=== PATIENT | female | born 1965 | race Caucasian/White ===

== ENCOUNTER 2016-11-29 08:04 | Outpatient (CLI) | payer MEDICARE, OTHER ==
[2016-05-08 16:23] VITALS: BP 148/74
[2016-11-29 09:03] LABS: eGFR (African) > 60; eGFR (Non-African) > 60
== END 2016-11-29 08:05 ==
LOC: LAB 08:04
PROVIDERS: ATTEND Family Medicine
DX: E55.9 Vitamin D deficiency, unspecified (principal); Z13.6 Encounter for screening for cardiovascular disorders; Z13.220 Encounter for screening for lipoid disorders
CPT/HCPCS: 36415; 80053; 80061; 82306

== ENCOUNTER 2017-01-04 08:09 | Outpatient (CLI) | payer MEDICARE, OTHER ==
[2016-05-08 16:23] VITALS: BP 148/74
[2017-01-04 08:57] LABS: eGFR (African) > 60; eGFR (Non-African) > 60
== END 2017-01-04 09:10 ==
LOC: LAB 08:09
PROVIDERS: ATTEND Family Medicine
DX: R82.99 Other abnormal findings in urine (principal)
CPT/HCPCS: 36415; 80053

== ENCOUNTER 2017-01-09 08:07 | Outpatient (CLI) | payer MEDICARE, OTHER ==
[2016-05-08 16:23] VITALS: BP 148/74
== END 2017-01-09 08:10 ==
LOC: LAB 08:07
PROVIDERS: ATTEND Family Medicine
DX: R82.99 Other abnormal findings in urine (principal)
CPT/HCPCS: 36415; 82330; 83970

== ENCOUNTER 2017-02-09 19:36 | Emergency (ER) | payer MEDICARE, OTHER ==
[2017-02-09] MEDS ORDERED: 0.9 % SODIUM CHLORIDE 1,000 ML IV ONE (20:10)
[2017-02-09 20:23] LABS: BASOPHILS % 0.9 (0.0-1.5); EOSINOPHILS % 1.7 % (0.0-6.8); MEAN CORPUSCULAR HEMOGLOBIN 30.6 pg (28.0-34.0); MONOCYTES % 6.3 % (0.0-11.0); NEUTROPHILS # 2.8 # k/uL (1.4-7.7)
[2017-02-09 20:31] LABS: eGFR (African) > 60; eGFR (Non-African) > 60
--- NOTE | 2017-02-09 20:50 | Diagnostic Imaging Report ---
LUZ [facility] [address] [facility] [address] [place], [place]. [address] Report Submission Date: Feb 09, 2017 8:47:54 PM CDT Patient Study Name: JOSEFINA ARORA Date: Feb 09, 2017 8:25:03 PM CDT Modality Type: CT\SR Gender: F Description: CT BRAIN W/O CONTRAST : 65 Institution: [facility] Physician: LUZ HOLDER Examination: CT head without contrast History: Seizure Comparison exam: None available Technique: Noncontrast head CT protocol. Findings: Ventricles and sulci are appropriate for patient age. Cerebrocerebellar parenchyma demonstrates normal attenuation. No evidence for parenchymal hemorrhage. No evidence for mass or mass effect. No midline shift. No extra axial fluid collections. Partial visualization of the paranasal sinuses , mastoid air cells, orbits, skull and scalp without gross irregularity. Impression: No acute parenchymal process. No hemorrhage. Electronically signed on Feb 09, 2017 8:47:54 PM CDT by: Bharat FORBES
--- NOTE | 2017-02-09 21:29 | Diagnostic Imaging Report ---
LUZ HOLDER [facility] [address] [facility] [address] [address] Report Submission Date: Feb 09, 2017 9:16:12 PM CDT Patient Study Name: JOSEFINA ARORA Date: Feb 09, 2017 8:40:52 PM CDT Modality Type: CR Gender: F Description: CHEST : 65 Institution: [facility] Physician: LUZ HOLDER Chest, AP portable History: Seizure Findings: No infiltrate, effusion or pneumothorax is present. The heart is enlarged. Pulmonary vascularity is normal. Cardiomegaly. Electronically signed on Feb 09, 2017 9:16:12 PM CDT by: Joseph FORBES
[2017-02-09] MEDS: 0.9 % SODIUM CHLORIDE 1,000 ML IV SCH (21:30)
--- NOTE | 2017-02-09 21:39 | ED Physician Documentation ---
Seizure - HISTORIAN Historian: patient, parent, other (facility staff) - HPI Stated Complaint: seizure Chief Complaint: Seizure Additional Information: > 5 min staring, not responsive but breathing with normal vs during incident, no loc, no loss of urinary or bowel continence Timing/Onset/Duration: single episode, other (> 5 min) Last known Well Date: 02/09/17 Last Known Well Time: 18:00 Last known Well Code/Unknown Code: Unknown Witnessed By: other (staff) Preceding Symptoms: none Activity Prior to Seizure: walking during seizure Character of Seizure(s): unresponsiveness, staring. denies: incontinence of urine, incontinence of stool Postictal Symptoms: none Location of Injury: none Further Comments: no - ROS NEURO/PSYCH: denies: headache, fainting, dizziness EYES/ENT: none CVS/RESP: none GI/: denies: adominal pain, nausea, vomiting MS/SKIN/LYMPH: none - PAST HX Previous seizure/seizure disorder: long-standing Etiology: idiopathic Other History: other (depression) Surgeries/Procedures: other (orthopedic) Immunizations: referred to PCP Allergies/Adverse Reactions: Allergies Allergy/AdvReac Type Severity Reaction Status Date / Time amoxicillin Allergy Verified 02/09/17 19:46 carbamazepine [From Tegretol] Allergy Verified 02/09/17 19:46 Home Medications: Ambulatory Orders Medication Instructions Recorded Acetaminophen/Diphenhydramine 1 tab PO HS 02/02/15 [Tylenol Pm Ex-Strength Caplet] Citalopram Hydrobromide [Celexa] 40 mg PO D 02/02/15 Lamotrigine [Lamotrigine] 150 mg PO BID 02/02/15 Loratadine [Claritin] 10 mg PO D 02/02/15 Multivitamin [Tab-A-Amanda] 1 tab PO D 02/02/15 Oxybutynin Chloride [Oxybutynin 5 mg PO HS 02/02/15 Chloride] Risperidone [Risperdal] 1 mg PO BID 02/02/15 Guaifenesin/Dextromethorphan 10 ml PO Q6 05/08/16 [Tussin Dm Syrup] Lacosamide [Vimpat] 200 mg PO BID 05/08/16 Lamotrigine [Lamotrigine] 25 mg PO BID 05/08/16 - SOCIAL HX Smoking History: non-smoker Alcohol Use: none Drug Use: none - FAMILY HX Family History: none - VITAL SIGNS Vital Signs: Vital Signs Temp Pulse Resp BP Pulse Ox 80 16 148/83 96 02/09/17 21:43 02/09/17 21:43 02/09/17 21:43 02/09/17 21:43 - REVIEWED ASSESSMENTS Nursing Assessment Reviewed: Yes Vitals Reviewed: Yes Progress - Results/Orders Results/Orders: ua, cbc, cmp, ct brain, cxr ordered in er - Progress Progress: pt. given 1 liter ns in er, pt. alert, no seizure activity in er, stable entire time in er Critical Care Note - Critical Care Note Total Time (mins): 0 ED Results Lab/Radiology - Lab Results Lab Results: Lab Results 02/09/17 02/09/17 02/09/17 20:15 20:15 20:05 WBC 6.70 K/ul K/ul (4.00-12.00) RBC 4.05 M/ul M/ul (3.90-5.20) Hgb 12.4 g/dL g/dL (12.0-16.0) Hct 37.7 % % (34.5-46.5) MCV 93.0 fl fl (80.0-100.0) MCH 30.6 pg pg (28.0-34.0) MCHC 32.9 g/dL g/dL (30.0-36.0) RDW 13.0 % % (11.3-14.3) Plt Count 127 K/mm3 L K/mm3 (130-400) Neut % (Auto) 42.5 % % (39.0-79.0) Lymph % (Auto) 46.3 % % (16.0-50.0) [place] % (Auto) 6.3 % % (0.0-11.0) Eos % (Auto) 1.7 % % (0.0-6.8) Baso % (Auto) 0.9 (0.0-1.5) Neut # (Auto) 2.8 # k/uL # k/uL (1.4-7.7) Lymph # (Auto) 3.1 # k/uL # k/uL (0.6-4.0) [place] # (Auto) 0.4 # k/uL # k/uL (0.0-0.9) Eos # (Auto) 0.1 # k/uL # k/uL (0.0-0.6) Baso # (Auto) 0.1 # k/uL # k/uL (0.0-0.5) Reactive Lymphs % 2.3 % % (0.0-5.0) Reactive Lymphs # 0.2 # k/uL # k/uL (0.0-0.8) Sodium 137 mmol/L mmol/L (136-145) Potassium 4.0 mmol/L mmol/L (3.5-5.0) Chloride 98 mmol/L mmol/L (98-110) Carbon Dioxide 35 mmol/L H mmol/L (20-32) BUN 10 mg/dL mg/dL (10-26) Creatinine 0.9 mg/dL mg/dL (0.4-1.5) Estimated Creat Clear 112 Est GFR ( Amer) > 60 (60 - ) Est GFR (Non-Af Amer) > 60 (60 - ) Glucose 111 mg/dL H mg/dL (70-99) Calcium 10.0 mg/dL mg/dL (8.5-10.5) Total Bilirubin 0.2 mg/dL mg/dL (0.2-1.2) AST 24 U/L U/L (0-41) ALT 16 U/L U/L (0-45) Alkaline Phosphatase 52 U/L U/L (46-116) Total Protein 8.2 g/dL g/dL (6.0-8.5) Albumin 4.8 g/dL g/dL (3.0-5.5) Urine Color Yellow (YELLOW) Urine Appearance Clear (CLEAR) Urine pH 7.5 (5.0 - 8.0) Ur Specific [place] 1.015 (1.010-1.030) Urine Protein Trace mg/dL H mg/dL (NEGATIVE) Urine Ketones Negative mg/dL mg/dL (NEGATIVE) Urine Occult Blood Trace-intact H (NEGATIVE) Urine Nitrite Negative (NEGATIVE) Urine Bilirubin Negative (NEGATIVE) Urine Urobilinogen 0.2 Eu Eu (0.2-1.0) Ur Leukocyte Esterase Negative (NEGATIVE) Urine Glucose Negative mg/dL mg/dL (NEGATIVE) - Radiology Radiology Impressions: ct head neg, cxr neg - Orders Orders: ED Orders Category Date Time Status Place IV Lock 1T Care 02/09/17 20:05 Active CHEST 1 VIEW [RAD] Routine Exams 02/09/[address] BRAIN W/O CONTRAST Stat Exams 02/09/17 Completed CBC/PLATELET/DIFF Routine Lab 02/09/17 20:15 Completed CMP Routine Lab 02/09/17 20:15 Completed LAMOTRIGINE LEVEL Routine Lab 02/09/17 20:15 Received UA MACRO DIP ONLY Routine Lab 02/09/17 20:05 Completed 0.9 % Sodium Chloride [Normal Saline] 1,000 ml Med 02/09/17 20:30 Discontinued IV .Q1H 0.9 % Sodium Chloride [Normal Saline] 1,000 ml Med 02/09/17 20:10 Discontinued IV .STK-MED Seizure Physical Exam - Physical Exam General Appearance: no acute distress, alert Altered Mental Status Higher Functions: alert, oriented x3, no evidence of acute CVA, mood/affect nml EENT: nml eye inspection, PERRL Neck/Back: normal inspection, thyroid normal, supple Respiratory: no resp. distress, breath sounds nml, no evidence of rib injury CVS: reg rate & rhythm, heart sounds normal, equal pulses, no murmur, no gallop Abdomen: non-tender, no organomegaly, nml bowel sounds, no distention Skin: warm/dry, normal color Extremities: normal range of motion, non-tender, normal inspection, no pedal edema, no calf tenderness, normal capillary refill Observed Seizure Activity in ED: other (none) - Nexus Criteria Neg Nexus Criteria: Nexus criteria neg Discharge Clincal Impression: Seizure Referrals: Vandana Mathias MD [Primary Care Provider] - 2 Days Home Medications: Ambulatory Orders Acetaminophen/Diphenhydramine [Tylenol Pm Ex-Strength Caplet] 1 tab PO HS Citalopram Hydrobromide [Celexa] 40 mg PO D 02/02/15 Lamotrigine [Lamotrigine] 150 mg PO BID 02/02/15 Loratadine [Claritin] 10 mg PO D 02/02/15 Multivitamin [Tab-A-Amanda] 1 tab PO D 02/02/15 Oxybutynin Chloride [Oxybutynin Chloride] 5 mg PO HS 02/02/15 Risperidone [Risperdal] 1 mg PO BID 02/02/15 Guaifenesin/Dextromethorphan [Tussin Dm Syrup] 10 ml PO Q6 05/08/16 Lacosamide [Vimpat] 200 mg PO BID 05/08/16 Lamotrigine [Lamotrigine] 25 mg PO BID 05/08/16 Comments: discharged in stable condition with family to follow up with primary care in next few days Condition: Stable Disposition: 01 HOME, SELF-CARE Decision to Admit: NO Decision Time: 21:38
[2017-02-09 22:03] VITALS: BP 148/83
[2017-02-10 05:18] LABS: APPEARANCE,URINE CLEAR (CLEAR); COLOR,URINE YELLOW (YELLOW); OCCULT BLOOD,URINE TRACE-INTACT (NEGATIVE); PH URINE 7.5 (5.0 - 8.0); UROBILINOGEN URINE 0.2 Eu (0.2-1.0)
== END 2017-02-09 21:43 | disposition home or self-care (01) ==
LOC: ED 19:36
DX: R56.9 Unspecified convulsions (principal)
CPT/HCPCS: 70450; 71010; 80053; 80171; 81002; 85025; 96360; 99283; J7030

== ENCOUNTER 2018-11-20 08:15 | Outpatient (CLI) | payer MEDICARE, OTHER ==
[2018-11-20 09:04] LABS: eGFR (Non-African) > 60
[2018-11-20 09:16] LABS: MEAN CORPUSCULAR HEMOGLOBIN 31.5 pg (28.0-34.0)
[2018-11-20 09:17] LABS: ANISOCYTOSIS 1+ (NEGATIVE); BASOPHILS % 1 % (0-2); EOSINOPHILS % 3 % (0-7); MONOCYTES % 6 % (0-11); SEGMENTED NEUTROPHILS % 39 % (39-79); SMUDGE CELLS 1 #PER 100 (0-0)
[2018-11-20 09:18] LABS: OVALOCYTES 1+ (NEGATIVE); TEAR DROP CELLS 1+ (NEGATIVE)
== END 2018-11-20 08:17 ==
LOC: LAB 08:15
PROVIDERS: ATTEND Family Medicine
DX: Z13.220 Encounter for screening for lipoid disorders (principal); G40.909 Epilepsy, unspecified, not intractable, without status epilepticus; E55.9 Vitamin D deficiency, unspecified
CPT/HCPCS: 36415; 80053; 80061; 82306; 85025